=== PATIENT | female | born 1945 ===

== ENCOUNTER → 2016-09-21 | Day surgery (SDC) | payer MEDICARE ==
[~2016-09-21] MED LIST: Iohexol 350mgl/ml 50 ML ONE
[2016-09-21 08:18] VITALS: BMI 21.4
--- NOTE | 2016-09-21 10:02 | CP.SDSHP ---
Same Day Surgery H & P - History Proposed Procedure: Left subclavian port removal Pre-Op Diagnosis: Left subclavian port - Allergies Allergies: Allergies No Known Allergies Allergy (Verified 09/21/16 08:18) - Physical Exam Vital Signs: Vital Signs 09/21/16 08:44 Temperature 97.8 F Pulse Rate 61 Respiratory 20 Rate Blood Pressure 187/66 H O2 Sat by Pulse 99 Oximetry Mental Status: Alert & Oriented x3 Neuro: WNL Heart: WNL Lungs: WNL - Impression Impression: Pt with left subclavian port referred for port removal. Plan left subclavian port removal. Informed consent obtained. Pt. Evaluated Today:Candidate for Anesthesia & Procedure: Yes (asa2 malampati 2) - Date & Time Date: 09/21/16 Time: 09:30 Short Stay Discharge - Short Stay Discharge Admitting Diagnosis/Reason for Visit: OTH TYPES OF NON-HODGKIN LYMPHOMA, INTRAPELVIC LYM
--- NOTE | 2016-09-21 10:03 | PCM.SURG1 ---
Surgeon's Initial Post Op Note - Surgeon's Notes Surgeon: David Coleman MD Pastoral Worker: None Type of Anesthesia: IV Sedation Pre-Operative Diagnosis: Left subclavian port Operative Findings: Left subclavian port Post-Operative Diagnosis: Left subclavian port Operation Performed: Left subclavian port removal Specimen/Specimens Removed: Existing port Estimated Blood Loss: EBL {In ML}: 2 Blood Products Given: N/A Drains Used: No Drains Post-Op Condition: Good Date of Surgery/Procedure: 09/21/16 Time of Surgery/Procedure: 10:00
--- NOTE | 2016-09-21 10:57 | SPECPROC ---
PROCEDURE: Date of study: Procedure: 09/21/2016 1. Removal left IJ gita catheter, [id number] Medications: The patient sedated by the anesthesiologist with IV sedation along with physiologic monitoring, 8cc 1 % Lidocaine w epi, 1 gm Ancef HISTORY: left subclavian port and completion of chemotherapy TECHNIQUE: Following formed consent the procedure time-out, the patient placed supine on interventioanl table and the left neck and chest were prepped and draped in the usual sterile fashion. A fluoroscopic image showed a left subclavain port catheter. After the patient sedated by the anesthesiologist along with physiologic monitoring and the skin anesthetized with 1 percent lidocaine with epinephrine, an incision was made over the existing port scar with a 15. Scalpel The port was then removed by blunt dissection. Two sutures were cut and removed. The port and port catheter were then removed. Once hemostasis was achieved the port pocket was closed with absorbable 4 Polysorb sutures. Dressing was applied. Final chest radiograph showed removal of left IJ gita catheter with no retained foreign bodies. IMPRESSION: Removal of left IJ gita catheter.
[2016-09-21 12:20] VITALS: BP 136/64; PULSE 68; RESP 20; TEMP 97.6; O2SAT 100
--- NOTE | 2016-09-22 12:03 | CARD ---
APPROVED REPORT EKG Measurement Heart [id number] NM [id number] <Conclusion> Sinus bradycardia Left axis deviation Abnormal ECG
== END | disposition home or self-care (01) ==
LOC: C.SPRAD 08:00
PROVIDERS: ATTEND Radiology Vascular & Interventional Radiology
DX: Z45.2 Encounter for adjustment and management of vascular access device (principal); C85.86 Other specified types of non-Hodgkin lymphoma, intrapelvic lymph nodes